=== PATIENT | male | born 1990 | race Caucasian/White ===

== ENCOUNTER 2021-02-24 08:19 | Emergency (ER) | payer OTHER, SELFPAY ==
[2021-02-24 08:50] VITALS: BP 134/88; PULSE 108; RESP 18; TEMP 38.7; O2SAT 97
--- NOTE | 2021-02-24 09:14 | ED.URI ---
HPI - URI/Sore Throat General Chief Complaint: Upper Respiratory Infection Stated Complaint: Sinus infection Time Seen by Provider: 02/24/21 09:03 Source: patient and RN notes reviewed Mode of arrival: ambulatory Limitations: no limitations History of Present Illness HPI Narrative: Patient presents today complaining of a 2-day history of nasal congestion, fever up to 102, sore throat. Denies ear pain, cough, headache, nausea or vomiting, loss of taste or smell. He has been using Mucinex, Tylenol, ibuprofen with some relief. He has had 1 Moderna COVID-19 vaccine and is due to get a second on the . States he believes he has a sinus infection. MD elicited complaint: sore throat and nasal congestion Related Data Home Medications Medication Instructions Recorded Confirmed No Home Medications 02/24/21 02/24/21 Allergies Allergy/AdvReac Type Severity Reaction Status Date / Time No Known Allergies Allergy Verified 02/24/21 08:44 Review of Systems Review of Systems: Narrative: CONSTITUTIONAL: Denies body aches, chills, or sweats. + Fever EYES: Denies visual changes, redness, or discharge. ENT: Denies rhinorrhea, or otalgia.+ Sore throat, nasal congestion CARDIOVASCULAR: Denies chest pain, palpitations, or edema. RESPIRATORY: Denies cough or dyspnea. GASTROINTESTINAL: Denies abdominal pain, nausea, vomiting, or diarrhea. GENITOURINARY: Denies dysuria or hematuria. SKIN: Denies rash, itching, or wounds. MUSCULOSKELETAL: Denies back pain, joint pain, or myalgia. NEUROLOGIC: Denies headache, numbness, tingling, or weakness. PSYCH: Denies depression or anxiety. PMFSH Social History Social History Gender identity (if verbalized by the patient): Male Comments At time of signature, I have reviewed and agree with nursing past medical, surgical, social and family history unless otherwise noted. Please see nursing chart for further information. There is no relevant family history pertinent to the presenting complaint Exam Narrative: Exam Narrative: GENERAL: Well-appearing, well-nourished, and in no acute distress. HEAD: Normocephalic, atraumatic. EYES: EOMI. No redness or drainage. Conjunctivae normal. ENT: Mucous membranes pink and moist. Nares clear. No rhinorrhea. TMs normal bilaterally. Throat erythematous and mildly edematous without exudate. Uvula midline. Sinuses nontender to palpation. NECK: Normal AROM. Supple. No lymphadenopathy. CHEST: No respiratory distress. Clear to auscultation. HEART: Regular rate and rhythm. No murmur appreciated. Normal peripheral pulses. EXTREMITIES: Normal range of motion. No edema. SKIN: Warm, dry, no rash. Capillary refill normal. Normal skin turgor. NEURO: No focal deficits. Alert and oriented x3. Gait steady. PSYCH: Normal affect. No signs of depression or anxiety. Course Vital Signs Vital signs: Vital Signs Temperature 101.7 F H 02/24/21 08:50 Pulse Rate 108 H 02/24/21 08:50 Respiratory Rate 18 02/24/21 08:50 Blood Pressure 134/88 02/24/21 08:50 Pulse Oximetry 97 02/24/21 08:50 Temperature 101.7 F H 02/24/21 08:50 Pulse Rate 108 H 02/24/21 08:50 Respiratory Rate 18 02/24/21 08:50 Blood Pressure 134/88 02/24/21 08:50 Pulse Oximetry 97 02/24/21 08:50 Reviewed. Pt has been instructed to follow up with his PCP regarding his elevated blood pressure today. MDM - URI/Sore Throat Differential Diagnosis Differential diagnosis: Likely upper respiratory infection, sinusitis, viral infection, influenza, pharyngitis and other (Strep throat, COVID-19) Lab Data Attestation: I reviewed the patient's lab results. Labs: Lab Results 02/24/21 Range/Units 09:01 POC SARS CoV-2 Ag Negative (Negative) Influenza A Screen Negative Reference Range: Negative Influenza B Screen Negative
== END 2021-02-24 09:30 | disposition home or self-care (01) ==
PROVIDERS: Emergency Provider Nurse Practitioner
DX: B34.9 Viral infection, unspecified (principal); J02.9 Acute pharyngitis, unspecified; Z20.822 Contact with and (suspected) exposure to COVID-19
CPT/HCPCS: 87081; 87426; 87804; 87880; 99203; C9803; G0463

== ENCOUNTER 2023-01-31 13:53 | Emergency (ER) | payer SELFPAY ==
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
[2023-01-31 14:49] VITALS: BP 125/100; PULSE 97; RESP 18; TEMP 36.9; O2SAT 97
== END 2023-01-31 15:18 | disposition home or self-care (01) ==
PROVIDERS: Emergency Provider Emergency Medicine; PCP Family Medicine
DX: F10.10 Alcohol abuse, uncomplicated (principal); F32.A Depression, unspecified
CPT/HCPCS: 99281

== ENCOUNTER 2023-02-01 19:21 | Emergency (ER) | payer SELFPAY ==
[2023-02-01] VITALS (7 sets, daily range): BP systolic 124–145; BP diastolic 61–74; PULSE 105–128; RESP 14–20; O2SAT 92–96
[2023-02-01] MEDS: HALOPERIDOL LACTATE 5 MG/ML VIAL IM (19:29)
[2023-02-01] MEDS: LORazepam INJ (*CRX) 2 MG/ML VIAL IM (19:29)
--- NOTE | 2023-02-01 19:29 | ED.ALCOHOL ---
HPI - Alcohol General Chief Complaint: Alcohol <Kieran Toledo MD - Last Filed: 02/02/23 07:07> Stated Complaint: etoh <Kieran Toledo MD - Last Filed: 02/02/23 07:07> History of Present Illness HPI narrative: This is a 32-year-old male with history of alcohol abuse, brought in by EMS after being found intoxicated and combative at a gas station. The patient states she drank today but is otherwise uncooperative and combative toward staff. <Kieran Toledo MD - Last Filed: 02/02/23 07:07> Related Data Allergies/Adverse Reactions: Allergies Allergy/AdvReac Type Severity Reaction Status Date / Time No Known Allergies Allergy Verified 05/18/22 10:35 <Kieran Toledo MD - Last Filed: 02/02/23 07:07> Review of Systems Review of Systems: Unable to obtain review of systems due to patient's uncooperative <Kieran Toledo MD - Last Filed: 02/02/23 07:07> PMFSH Past Medical History Medical History: Medical History Anxiety <Kieran Toledo MD - Last Filed: 02/02/23 07:07> Surgical History Surgical History: Surgical History History of wisdom tooth extraction <Kieran Toledo MD - Last Filed: 02/02/23 07:07> Family History Family History: Family History Father Throat cancer <Kieran Toledo MD - Last Filed: 02/02/23 07:07> Social History Social History: Social History Smoking status: Never smoker Second hand tobacco smoke exposure: No Alcohol intake: current Substance use: never Substance use type: does not use Living arrangements: with family Occupation/Education: occupation Gender identity (if verbalized by the patient): Male <Kieran Toledo MD - Last Filed: 02/02/23 07:07> Exam Narrative: GENERAL: Well-developed, well-nourished, appears intoxicated and combative HEAD: Normocephalic, atraumatic. EYES: PERRLA and EOMI. CHEST: Clear to auscultation. No respiratory distress. No wheezes rales or rhonchi HEART: Regular rate and rhythm. No murmur heard. Normal peripheral pulses. ABDOMEN: Soft, nontender, nondistended, normal active bowel sounds. EXTREMITIES: Normal range of motion. No edema. SKIN: Warm, dry, no rash. NEURO: No focal deficits. Alert and intoxicated PSYCH: Appears intoxicated <Kieran Toledo MD - Last Filed: 02/02/23 07:07> Course Course Emergency Course: 19:30 - The patient is combative and violent towards staff. Will chemically sedate with Ativan and Haldol and placed in violent restraints. 20:35 - The patient has remained calm and sleeping with chemical sedation. He was released from hard restraints. Tachycardia to the low 100s noted on the monitor. O2 sats in the mid 90s on room air. Serum alcohol level 441. CBC unremarkable. CBC demonstrates mild hypokalemia at 3.3 with a total CK of 209. Creatinine 1. Salicylates and Tylenol negative. At present, there is no known family members who could pick pack worker the patient. 22:30 - Reevaluated patient, he is sleeping peacefully. 23:44 - Reevaluated patient he is sleeping peacefully but is more mobile. 01:15 - Drug screen positive for cannabinoids. 03:20 - Reevaluated patient, he is sleeping peacefully moving all 4 limbs spontaneously. He wakes easily to voice and falls back asleep quickly. 07:00 - Patient signed out to oncoming ED physician, Dr. Gracia pending sober reassessment. <Kieran Toledo MD - Last Filed: 02/02/23 07:07> 19:30 - The patient is combative and violent towards staff. Will chemically sedate with Ativan and Haldol and placed in violent restraints. 20:35 - The patient has remained calm and sleeping with chemical sedation. He was released from hard restraints. Tachycardia to the low 100s noted
[2023-02-01 20:03] LABS: Basophils Absolute Auto 0.1 K/mm3 (0.0-0.1); Basophils Percent Auto 0.7 % (0.2-1.2); Eosinophils Absolute Auto 0.1 K/mm3 (0-0.3); Eosinophils Percent Auto 0.5 % (0-4.4); Hematocrit 45.3 % (42.0-52.0); Hemoglobin 16.2 g/dL (14.0-18.0); Immature Granulocyte Absolute 0.06 K/mm3 (0.00-0.031); Immature Granulocyte Percent A 0.5 % (0-0.5); Lymphocytes Absolute Auto 3.64 K/mm3 (0.9-3.2); Lymphocytes Percent Auto 27.8 % (18.3-44.2); Mean Corpuscular HGB Conc 35.8 g/dl (32-36); Mean Corpuscular Hemoglobin 28.9 pg (26-34); Mean Corpuscular Volume 80.7 fl (80-100); Monocytes Absolute Auto 0.5 K/mm3 (0.1-0.6); Monocytes Percent Auto 4.1 % (2.6-8.5); Neutrophils Absolute Auto 8.7 K/mm3 (1.3-6.7); Neutrophils Percent Auto 66.4 % (45.5-73.1); Platelet Count Result 340 k/mm3 (150-375); Red Blood Count 5.61 M/mm3 (4.6-6.20); Red Cell Distribution Width 13.1 % (11.5-14.5); White Blood Count 13.1 K/mm3 (4.5-10.0)
--- NOTE | 2023-02-01 20:08 | PC.NURSE ---
restraints dc'd. pt resting per stretcher with eyes closed. resp even and unlabored. vital signs stable.
[2023-02-01 20:17] LABS: Alanine Aminotransferase 32 U/L (6-50); Albumin Level 5.1 g/dL (3.5-5.1); Alkaline Phosphatase 118 U/L (38-126); Anion Gap 15 mmol/L (8-16); Aspartate Amino Transferase 53 U/L (17-59); Bilirubin,Total 2.2 mg/dL (0.2-1.3); Blood Urea Nitrogen 12 mg/dL (9-20); Calcium 8.6 mg/dL (8.4-10.2); Carbon Dioxide 24 mmol/L (22-30); Chloride 106 mmol/L (98-107); Creatine Kinase 209 U/L (55-170); Estimated CRCL calculation 99 ml/min; Estimated Glomerular Filt Rate > 60; Glucose 106 mg/dL (65-110); Potassium 3.3 mmol/L (3.4-5.0); Sodium 145 mmol/L (137-145)
[2023-02-01 20:30] LABS: Acetaminophen < 10 ug/mL (10-30); Salicylate < 1.0 mg/dL (2-20)
[2023-02-01 20:31] LABS: Ethanol 441 mg/dL (<10)
[2023-02-02] VITALS (18 sets, daily range): BP systolic 103–147; BP diastolic 51–79; PULSE 97–122; RESP 11–25; TEMP 37.3; O2SAT 95–99
--- NOTE | 2023-02-02 00:50 | PC.NURSE ---
pt more alert and answering some questions. re-oriented pt to place and situation.
[2023-02-02 01:20] LABS: Appearance Urine Clear (Clear); Bilirubin Urine Negative (Negative); Blood Urine Negative (Negative); Color Urine Yellow (Yellow); Glucose Urine UA Negative (Negative); Ketones Urine Negative (Negative); Leukocyte Esterase Ur Negative LEU/UL (Negative); Nitrate Urine Negative (Negative); Protein Urine Negative (Negative); Specific Grav Ur 1.006 (1.001-1.035); Urobilinogen Urine 0.2 mg/dL (<2.0); pH Urine 6.5 (5.0-9.0)
[2023-02-02 01:37] LABS: Add Urine Microscopic? NO
[2023-02-02 02:54] LABS: Amphetamine Screen Urine Negative (Negative); Barbiturate Screen Urine Negative (Negative); Benzodiazepines Screen Urine Negative (Negative); Cannabinoid Screen Urine Positive (Negative); Cocaine Screen Urine Negative (Negative); Methadone Screen Urine Negative (Negative); Opiate Screen Urine Negative (Negative); Phencyclidine Screen Urine Negative (Negative)
--- NOTE | 2023-02-02 07:32 | PC.NURSE ---
Pt awake, alert, getting dressed wanting to leave. Per Dr. Gracia, if pt can get a ride to come and pick him up he can leave
--- NOTE | 2023-02-02 09:41 | PC.NURSE ---
Pt attempting to find a ride at this time
== END 2023-02-02 10:00 | disposition home or self-care (01) ==
PROVIDERS: Emergency Provider Preventive Medicine Aerospace Medicine; PCP Family Medicine
DX: F10.129 Alcohol abuse with intoxication, unspecified (principal); Y90.8 Blood alcohol level of 240 mg/100 ml or more; F41.9 Anxiety disorder, unspecified
CPT/HCPCS: 36415; 80053; 80307; 81003; 82550; 85025; 96372; 99284; J1630; J2060